=== PATIENT | female | born 1955 | race Caucasian/White ===

== ENCOUNTER → 2023-03-10 | Emergency (ER) | payer OTHER ==
[~2023-03-10] MED LIST: CIPROFLOXACIN HCL 500 MG TAB ONE
[2023-03-10 16:25] LABS: Specific Gravity 1.011 (1.005-1.030); Urine Bacteria None Seen /HPF (<20); Urine Bilirubin NEGATIVE (Negative); Urine Blood 3+ (OVER) (Negative); Urine Clarity Extremely Turbid (Clear); Urine Color Brown (Yellow); Urine Glucose NEGATIVE (Negative); Urine Protein 2+ (Negative); Urine RBC >50 /HPF (None Seen); Urine Urobilinogen Normal (Normal)
--- NOTE | 2023-03-10 16:47 | EDPHYS ---
Physician Documentation [facility] Name: Nette Sanchez Age: 68 yrs Sex: Female : 1955 Arrival Date: 03/10/2023 Time: 15:19 Bed DX1 Private MD: ED Physician Adelfo Coats HPI: 03/10 15:56 This 68 yrs old Female presents to ER via Unassigned with complaints of burning with rn urination. 15:56 The patient presents with urinary symptoms, dysuria, hematuria. Onset: The rn symptoms/episode began/occurred this morning. Modifying factors: The symptoms are alleviated by nothing, the symptoms are aggravated by urinating. Associated signs and symptoms: Pertinent positives: dysuria, Pertinent negatives: fever. Severity of symptoms: At their worst the symptoms were mild, in the emergency department the symptoms are unchanged. The patient has not experienced similar symptoms in the past. Patient reports started this morning with dysuria and noticed blood-tinged urine. No fever or chills. No systemic symptoms. No vomiting. No back pain.. Historical: - Allergies: 15:55 Demerol; aa5 15:55 Codeine; aa5 - Home Meds: 15:55 progesterone [Active]; aa5 - PMHx: 15:55 None; aa5 - Immunization history:: Adult Immunizations unknown. - Social history:: Smoking status: Patient denies any tobacco usage or history of. - Family history:: not pertinent. - Hospitalizations: : No recent hospitalization is reported. ROS: 15:56 Constitutional: Negative for fever, chills, and weight loss, Cardiovascular: Negative rn for chest pain, palpitations, and edema, Respiratory: Negative for shortness of breath, cough, wheezing, and pleuritic chest pain, Abdomen/GI: Positive for suprapubic abdominal pressure Back: Negative for injury and pain, : Positive for dysuria MS/Extremity: Negative for injury and deformity, Skin: Negative for injury, rash, and discoloration, Neuro: Negative for headache, weakness, numbness, tingling, and seizure, Exam: 15:56 Constitutional: This is a well developed, well nourished patient who is awake, alert, rn and in no acute distress. Cardiovascular: Regular rate and rhythm. No pulse deficits. Abdomen/GI: Soft, mild suprapubic tenderness without rebound or guarding. Back: No CVA tenderness Neuro: Awake and alert, GCS 15 Vital Signs: 15:40 BP 120 / 71; Pulse 117; Resp 18 S; Temp 97.5(TE); Pulse Ox 98% on R/A; Weight 88.45 kg aa5 (R); Height 5 ft. 2 in. (R); 17:01 Pulse 90; Resp 17; Pulse Ox 98% ; ll1 15:40 Body Mass Index 35.67 (88.45 kg, 157.48 cm) aa5 MDM: 15:31 Patient medically screened. rn 16:44 Differential diagnosis: urinary tract infection. Data reviewed: vital signs, nurses rn notes, lab test result(s), and as a result, I will discharge patient. Counseling: I had a detailed discussion with the patient and/or guardian regarding the historical points, exam findings, and any diagnostic results supporting the discharge/admit diagnosis, lab results, the need for outpatient follow up, to return to the emergency department if symptoms worsen or persist or if there are any questions or concerns that arise at home. 16:45 Special discussion: I discussed with the patient/guardian in detail that at this point rn there is no indication for admission to the hospital. It is understood, however, that if the symptoms persist or worsen the patient needs to return immediately for re-evaluation. ED course: Patient's signs and symptoms consistent with urinary tract infection. UA consistent with probably cystitis. No systemic symptoms to indicate pyelonephritis or sepsis. Patient reports very minimal pain and does not appear to be kidney stone or require emergent imaging at this time. Long discussion with patient regarding these issues and joint decision to put her on antibiotics and will return if symptoms worsen.. 03/10 15:34 Order name: Urinalysis w/ reflexes; Complete Time: 16:33 rn 03/10 16:34 Order name: Urine Culture EDMS Administered Medications: 17:00 Drug: Ciprofloxacin PO 500 mg PO once Route: PO; ll1 17:01 Follow up: Response: No adverse reaction ll1 Disposition Summary: 03/10/23 16:46 Discharge Ordered Notes: Location: Home rn Problem: new rn Symptoms: are unchanged rn Condition: Stable rn Diagnosis - UTI/ Urinary tract infection, site not specified rn Followup: rn - With: Private Physician - When: As needed - Reason: Recheck today's complaints, Re-evaluation by your physician Discharge Instructions: - Discharge Summary Sheet rn - Dysuria rn - Hematuria, Adult rn - Urinary Tract Infection, Adult rn Forms: - Medication Reconciliation Form rn - Thank You Letter rn - Antibiotic nocturnist physician - Prescription Opioid Use rn - Patient Portal Instructions rn - Leadership Thank You Letter rn Prescriptions: - Pyridium 200 mg Oral Tablet - take 1 tablet ORAL route every 8 hours for 3 days; 9 tablet; Refills: 0, rn Product Selection Permitted - Cipro 500 mg Oral tablet - take 1 tablet ORAL route every 12 hours for 10 days; 20 tablet; Refills: 0, rn Product Selection Permitted Signatures: Dispatcher [employer] EDAdelfo De La Garza MD MD rn Calderon, Audri RN RN aa5 Logan Grace RN RN ll1
--- NOTE | 2023-03-10 16:47 | ER ---
Nurse's Notes [facility] Name: Nette Sanchez Age: 68 yrs Sex: Female : 1955 Arrival Date: 03/10/2023 Time: 15:19 Bed DX1 Private MD: Diagnosis: UTI/ Urinary tract infection, site not specified Presentation: 03/10 15:40 Chief complaint: Patient states: blood in urine she noticed at around 1100 today and aa5 c/o suprapubic pressure, urgency, and burning with urination. 15:40 Coronavirus screen: At this time, the client does not indicate any symptoms associated aa5 with coronavirus-19. Ebola Screen: Patient denies travel to an Ebola-affected area in the 21 days before illness onset. Initial Sepsis Screen: Does the patient meet any 2 criteria? No. Patient's initial sepsis screen is negative. Does the patient have a suspected source of infection? No. Patient's initial sepsis screen is negative. Risk Assessment: Do you want to hurt yourself or someone else? Patient reports no desire to harm self or others. Onset of symptoms was March 10, 2023. 15:40 Acuity: LUCY 3 aa5 15:40 Method Of Arrival: Ambulatory aa5 Historical: - Allergies: 15:55 Demerol; aa5 15:55 Codeine; aa5 - Home Meds: 15:55 progesterone [Active]; aa5 - PMHx: 15:55 None; aa5 - Immunization history:: Adult Immunizations unknown. - Social history:: Smoking status: Patient denies any tobacco usage or history of. - Family history:: not pertinent. - Hospitalizations: : No recent hospitalization is reported. Assessment: 17:00 General: Appears in no apparent distress. Behavior is calm, cooperative, appropriate ll1 for age. Pain: Denies pain. : Reports burning with urination, pain with urination. Vital Signs: 15:40 BP 120 / 71; Pulse 117; Resp 18 S; Temp 97.5(TE); Pulse Ox 98% on R/A; Weight 88.45 kg aa5 (R); Height 5 ft. 2 in. (R); 17:01 Pulse 90; Resp 17; Pulse Ox 98% ; ll1 15:40 Body Mass Index 35.67 (88.45 kg, 157.48 cm) aa5 ED Course: 15:23 Patient arrived in ED. ts1 15:31 Adelfo Coats MD is Attending Physician. rn 15:40 Patient's name was called from ER lobby. No response. aa5 15:57 Triage completed. aa5 16:41 Patient placed in an exam room, on a stretcher. ll1 Administered Medications: 17:00 Drug: Ciprofloxacin PO 500 mg PO once Route: PO; ll1 17:01 Follow up: Response: No adverse reaction ll1 Outcome: 16:46 Discharge ordered by MD. rn 17:01 [facility] Condition: stable 17:01 Discharge instructions given to patient, Instructed on discharge instructions, follow up and referral plans. medication usage, Demonstrated understanding of instructions, follow-up care, medications, Prescriptions given X 2, 17:01 Patient left the ED. 1 Signatures: Adelfo Coats MD MD rn Calderon, Audri, RN RN aa5 Logan Grace RN RN 1 Liv Zaldivar [facility] ts1
[2023-03-10 18:03] VITALS: BP 120/71; TEMP 97.5; O2SAT 98
== END ==
LOC: ER 15:19
DX: N39.0 Urinary tract infection, site not specified (principal); Z88.5 Allergy status to narcotic agent
CPT/HCPCS: 81001; 87077; 87086; 87088; 87186; 99283